=== PATIENT | male | born 1950 ===

== ENCOUNTER 2018-02-09 07:50 | Day surgery (SDC) | payer MEDICARE, OTHER ==
[2018-01-31 15:19] VITALS: BMI 29.8
[2018-02-09] MEDS ORDERED: Propofol 10 mg/ml Inj (20 ML) ONE (08:39)
[2018-02-09] MEDS ORDERED: Sodium Chloride 0.9% 1,000 ML IV SCH (09:00)
[2018-02-09 09:29] VITALS: TEMP 98.2
[2018-02-09 15:32] VITALS: BP 144/83; PULSE 67; RESP 18; O2SAT 99
== END 2018-02-09 11:20 | disposition home or self-care (01) ==
LOC: ENDO 07:50
PROVIDERS: ATTEND Internal Medicine Gastroenterology
DX: Z12.11 Encounter for screening for malignant neoplasm of colon (principal); K21.9 Gastro-esophageal reflux disease without esophagitis; K44.9 Diaphragmatic hernia without obstruction or gangrene; K29.50 Unspecified chronic gastritis without bleeding; K57.30 Diverticulosis of large intestine without perforation or abscess without bleeding; K64.8 Other hemorrhoids; D12.5 Benign neoplasm of sigmoid colon; E11.9 Type 2 diabetes mellitus without complications; E78.00 Pure hypercholesterolemia, unspecified
CPT/HCPCS: 43239; 45385; 82948; 88305; 88312; 88342; J2001; J2704; J7030; J7040